=== PATIENT | male | born 1960 | race Caucasian/White ===

== ENCOUNTER 2024-01-31 11:11 | Inpatient (IN) ==
--- NOTE | 2024-01-31 11:37 | Emergency Department Note ---
Impression & Plan Precordial chest pain, Unstable angina, Elevated troponin, Exertional chest pain ED Provider Note NAME: PHANI GONZALEZ AGE: 63 SEX: M : 1960 ARRIVES VIA: Walk-In INFORMANT: [Patient] ED PROVIDER(S): [Cornelius Sharma MD] CHIEF COMPLAINT: Cardiac assessment HISTORY OF PRESENT ILLNESS: The patient is a 63-year-old male who states that he has had about 3 weeks of exertional chest pain that resolves with rest. Sometimes, if he pushes himself too hard, he becomes nauseated-he actually vomited 1 time. With rest, the pain subsides. He has had pain sometimes for 10-15 minutes before things resolve. The patient currently has no discomfort as he is resting. There has been no sweating, no pain radiation, no shortness of breath. The patient has no diagnosed coronary artery disease although, he had a calcium score done this year that was high. The patient did have a nuclear stress test earlier in the year and states that he passed. The patient typically lives in [place], he is here for a few months, he is dealing with his mother's estate. PMHx/PSHx/Social Hx: See Below PHYSICAL EXAM: GENERAL: Patient is in no acute distress. HEENT: No acute trauma, normocephalic atraumatic, mucous membranes moist, no nasal congestion. NECK: No stridor, no adenopathy, no meningismus, trachea is midline. LUNGS: Clear to auscultation bilaterally, no wheeze, no rhonchi, breath sounds equal. HEART: Without murmurs gallops or rubs, regular rate and rhythm. ABDOMEN: Soft, nontender, no peritonitis. EXTREMITIES: No cyanosis, full range of motion of all the joints without pain or difficulty. NEUROLOGIC: Oriented x 3, no acute motor or sensory deficits, no focal weakness. SKIN: No jaundice, no diaphoresis. DIFFERENTIAL DIAGNOSIS: Angina, VT, coronary artery disease, anemia, among others. EMERGENCY DEPARTMENT PROCEDURES: MEDICAL DECISION MAKING: There is no leukocytosis or concerning anemia. There is a normal platelet count. No coagulopathy. No renal failure or significant electrolyte abnormality. No concerning liver enzyme elevation. No evidence for pancreatitis. ECG shows a sinus rhythm with some biphasic T waves in the anterior and lateral leads. These findings were concerning for ischemia. These findings were new compared to an ECG that he had brought with him to this hospital. Cardiac enzyme testing x 1 is somewhat elevated, this troponin elevation certainly could be consistent with cardiac injury. Chest film does not show pneumonia or CHF. On exam, the patient was without complaints of chest pain. He was resting comfortably. Patient received oral aspirin. He was given a bolus of IV heparin and placed on a heparin drip. I did speak with the patient about his findings, I did speak with case management. The patient appears to have suffered cardiac injury. Patient is in need of a hospital stay and further cardiac workup. I did speak with cardiology, the patient is likely going to require a cardiac catheterization. The on-call hospitalist was consulted. The patient is aware of the need for hospitalization and potential cardiac catheterization. Prior/Outside records/notes reviewed: Notes from his care center in [place] showing an essentially unremarkable ECG, he did have a heart score that was elevated. ECG per my interpretation: Indication was chest pain. The ECG shows a normal sinus rhythm with a rate of 63. There are biphasic T waves seen in the anterior leads concerning for possible ischemia. There is no ST elevation, no PVCs. The QTc is 399. Compared to the ECGs that he brings with him, the biphasic T waves are new. Continuous Cardiac Monitoring per my interpretation: An order was placed for continuous cardiac monitoring. The monitor shows a rate of 78 with normal sinus rhythm. Imaging/x-ray results per my interpretation: Chest x-ray does not show mediastinal widening, pneumonia or pneumothorax. Chronic Medical/Social conditions affecting care: [facility] Yun. Case management and the on-call hospitalist. Level of care consideration(s): After review of the information above and other included data: --I believe the patient requires escalation of care to admission Critical Care Note: I have personally spent 45 minutes of critical care time in the direct management of this patient. This includes bedside care, interpretation of diagnostic studies, and testing, discussion with consultants, patient, and family members, and other required patient management activities. This 45 minutes is in excess of all separately billable procedures. DISPOSITION: Admission Past Med/Surg History Problem List (Updated 01/31/24 @ 15:23 by Cornelius Sharma MD) Exertional chest pain (Acute) Elevated troponin (Acute) Unstable angina (Acute) Precordial chest pain (Acute) NSTEMI (non-ST elevated myocardial infarction) Crescendo angina HLD (hyperlipidemia) Chest pain Syncope Medical History Acute non-ST segment elevation myocardial infarction Surgical History (Updated 01/31/24 @ 13:34 by Jayshree Bourgeois PA-C) Hx of total hip arthroplasty Social History Smoking Status: Never smoker Feels Safe at Home: Yes Allergies Allergies Allergy/AdvReac Type Severity Reaction Status Date / Time No Known Allergies Allergy Verified 01/31/24 14:12 Home Meds Home Medications Medication Instructions Recorded Confirmed Vitamin D2 1 cap PO QAM 01/31/24 01/31/24 atorvastatin 10 mg tablet 10 mg PO DAILY 01/31/24 01/31/24 multivitamin 1 tab PO QAM 01/31/24 01/31/24 Results & Data (ED) Vital Signs Vital Signs - 24 hr 01/31/24 11:17 01/31/24 11:44 01/31/24 11:48 Temperature 36.8 C Temperature Source Temporal Artery Scan Pulse Rate 78 61 Pulse Rate [Apical] Pulse Rhythm [Apical] Pulse Strength [Apical] Respiratory Rate 18 Respiratory Effort / Characteristics Non-Labored Spontaneous Respiratory Depth Normal Respiratory Pattern Blood Pressure 173/87 H Blood Pressure [Left Arm] Blood Pressure Mean 115 Blood Pressure Mean [Left Arm] Blood Pressure Position Sitting Blood Pressure Position [Left Arm] Pulse Oximetry 97 Oxygen Delivery Method Room Air Room Air Sepsis Recent Fever Within 48 Hours No Sepsis New/Unexplained Change in Mental Status N/A Sepsis Action Taken by Nursing No Action Required 01/31/24 11:48 01/31/24 11:48 01/31/24 13:00 Temperature Temperature Source Pulse Rate Pulse Rate [Apical] 62 Pulse Rhythm [Apical] Pulse Strength [Apical] Respiratory Rate 18 18 Respiratory Effort / Characteristics Respiratory Depth Respiratory Pattern Blood Pressure Blood Pressure [Left Arm] 140/81 153/96 H Blood Pressure Mean Blood Pressure Mean [Left Arm] 100 115 Blood Pressure Position Blood Pressure Position [Left Arm] Pulse Oximetry 97 99 Oxygen Delivery Method Room Air Room Air Room Air Sepsis Recent Fever Within 48 Hours Sepsis New/Unexplained Change in Mental Status Sepsis Action Taken by Nursing 01/31/24 14:09 Temperature Temperature Source Pulse Rate Pulse Rate [Apical] 60 Pulse Rhythm [Apical] Regular Pulse Strength [Apical] Normal Respiratory Rate 16 Respiratory Effort / Characteristics Non-Labored Respiratory Depth Normal Respiratory Pattern Regular Blood Pressure Blood Pressure [Left Arm] 152/80 H Blood Pressure Mean Blood Pressure Mean [Left Arm] 104 Blood Pressure Position Blood Pressure Position [Left Arm] Sitting Pulse Oximetry 98 Oxygen Delivery Method Room Air Sepsis Recent Fever Within 48 Hours Sepsis New/Unexplained Change in Mental Status Sepsis Action Taken by Shelter Medications Current Medication List: was personally reviewed by me Laboratory Data Attestation: I reviewed the patient's lab results. 01/31/24 11:30 01/31/24 11:30 Lab Results 01/31/24 01/31/24 01/31/24 Range/Units 11:30 12:31 13:30 WBC 4.11 L (4.8-10.8) K/ul RBC 4.51 L (4.70-6.10) M/uL Hgb 14.2 (14.0-18.0) g/dl Hct 41.5 L (42.0-52.0) % MCV 92.0 (80.0-100.0) fL MCH 31.5 (25.0-34.0) pg MCHC 34.2 (32.0-36.0) g/dL RDW Std Deviation 42.3 (36.4-46.3) fL RDW Coeff of Shana 12.6 (11.5-14.5) % Plt Count 267 (130-400) K/uL MPV 9.3 L (9.4-12.4) fL Immature Gran % (Auto) 0.2 % Neut % (Auto) 57.3 % Lymph % (Auto) 29.9 % [place] % (Auto) 10.9 % Eos % (Auto) 1.5 % Baso % (Auto) 0.2 % Neut # (Auto) 2.35 (1.40-6.50) K/uL Lymph # (Auto) 1.23 (1.20-3.40) K/uL [place] # (Auto) 0.45 (0.11-0.59) K/uL Eos # (Auto) 0.06 (0.00-0.50) K/uL Baso # (Auto) 0.01 (0.00-0.20) K/uL Immature Gran # (Auto) 0.01 (0.01-0.20) K/uL PT Cancelled 10.1 INR Cancelled 0.9 APTT Cancelled 26 PTT Ratio Cancelled 1.0 Sodium 137 (136-145) mmol/L Potassium 4.5 (3.5-5.1) mmol/L Chloride 105 (98-107) mmol/L Carbon Dioxide 23 (21-32) mmol/L Anion Gap 9 (3-11) BUN 13 (6-23) mg/dl Creatinine 0.97 (0.6-1.4) mg/dl Est Cr Clr Drug Dosing 78.2 ml/min Est GFR ( Amer) 94.6 ml/min Est GFR (Non-Af Amer) 81.6 ml/min BUN/Creatinine Ratio 13.4 (10-20) Glucose 111 H (70-99(Fasting)) mg/dl Calcium 9.6 (8.6-10.3) mg/dl Magnesium 2.0 (1.7-2.4) mg/dl Total Bilirubin 0.4 (0.2-1.0) mg/dl AST 63 H (13-39) U/L ALT 26 (7-52) U/L Alkaline Phosphatase 86 (34-104) U/L Troponin I High Sens 129.1 H* 149.6 H* (0-20) pg/ml Total Protein 7.7 (6.0-8.3) gm/dl Albumin 4.7 (3.4-5.0) gm/dl Globulin 3.0 (2.5-4.0) gm/dl Albumin/Globulin Ratio 1.6 (0.9-2) Lipase 14 (11-82) U/L Administered Medications Heparin Sodium/Dextrose (Heparin Sodium/Dextrose) 25,000 units in 500 mls @ 26 mls/hr IV .[id number] [facility]; Protocol Stop: 03/01/24 12:44 Last Admin: 01/31/24 13:06 Dose: 1,300 units/hr, 26 mls/hr Documented By: DARA Co-signed By: [facility] Discontinued Medications Aspirin (Aspirin Chew 324 Mg) 324 mg PO NOW STA Stop: 01/31/24 11:36 Last Admin: 01/31/24 11:46 Dose: 324 mg Documented By: DARA Heparin Sodium (Porcine) (Heparin Sod (Porcine) 1000 Unit/Ml) 1 units IV NOW ONE Stop: 01/31/24 12:46 Last Admin: 01/31/24 13:07 Dose: 6,000 units Documented By: DARA Co-signed By: MICHAEL Heparin Sodium/Sodium Chloride (Heparin In Nss Infusion 1000 Unit/500 Ml (2 U/Ml) Bag) Confirm Administered Dose 3,000 units IV .STK-MED ONE Stop: 01/31/24 14:18 Last Admin: 01/31/24 14:44 Dose: 3,000 units Documented By: GERARD Nicardipine HCl (Nicardipine Hcl Inj 2.5 Mg/Ml 10 Ml Amp) Confirm Administered Dose 25 mg .ROUTE .STK-MED ONE Stop: 01/31/24 14:18 Last Admin: 01/31/24 14:44 Dose: 25 mg Documented By: GERARD Nitroglycerin/Dextrose (Nitroglycerin/D5w 100mcg/Ml 20ml Syr) Confirm Administered Dose 2,000 mcg .ROUTE .STK-MED ONE Stop: 01/31/24 14:18 Last Admin: 01/31/24 14:44 Dose: 2,000 mcg Documented By: GERARD Imaging Data Radiologist's Impression: Chest X-Ray 01/31/24 11:20 XR chest 1V portable HISTORY: Chest pain, nonspecific COMPARISON: Chest CT 02/04/2019. FINDINGS: The lungs are clear. Cardiac silhouette is normal in size. No pleural effusions. No pneumothorax. IMPRESSION: No acute process. ACT 112: Negative or not required by law. Electronically signed by: Scott Loomis M.D. 01/31/2024 12:55 PM Discharge Plan Visit Data Chief Complaint: Cardiac Assessment Stated Complaint: CHEST PAIN AND PRESSURE, SOME NAUSEA ED Provider: Cornelius Sharma Discharge Problem: Precordial chest pain, Unstable angina, Elevated troponin, Exertional chest pain Patient Disposition: Admitted As Inpatient Condition: Serious Forms Stand Alone Forms: [facility] Prescriptions Prescriptions: No Action multivitamin Tablet 1 tab PO QAM Rx Instructions: OTC Vitamin D2 1 cap PO QAM Rx Instructions: otc, unknown strength atorvastatin 10 mg Tablet 10 mg PO DAILY Referrals Referrals: PCP,NO [Primary Care Provider] -
[2024-01-31] MEDS: ASPIRIN CHEW 324 MG PO STA (11:46)
[2024-01-31 11:49] LABS: Basophils # (auto) 0.01 K/uL (0.00-0.20); Basophils % (auto) 0.2 %; Eosinophils # (auto) 0.06 K/uL (0.00-0.50); Eosinophils % (auto) 1.5 %; Hematocrit (blood only) 41.5 % (42.0-52.0); Hemoglobin 14.2 g/dl (14.0-18.0); Immature Granulocytes # (auto) 0.01 K/uL (0.01-0.20); Immature Granulocytes % (auto) 0.2 %; Lymphocytes # (auto) 1.23 K/uL (1.20-3.40); Lymphocytes % (auto) 29.9 %; Mean Corpuscular Hemoglobin 31.5 pg (25.0-34.0); Mean Corpuscular Hgb Conc 34.2 g/dL (32.0-36.0); Mean Platelet Volume 9.3 fL (9.4-12.4); Monocytes # (auto) 0.45 K/uL (0.11-0.59); Monocytes % (auto) 10.9 %; Neutrophils # (auto) 2.35 K/uL (1.40-6.50); Neutrophils % (auto) 57.3 %; Platelet Count 267 K/uL (130-400); RDW Coefficient of Variation 12.6 % (11.5-14.5); RDW Standard Deviation 42.3 fL (36.4-46.3); Red Blood Count 4.51 M/uL (4.70-6.10); White Blood Count 4.11 K/ul (4.8-10.8)
[2024-01-31 12:14] LABS: Albumin Globulin Ratio 1.6 (0.9-2); Albumin Level 4.7 gm/dl (3.4-5.0); BUN Creatinine Ratio 13.4 (10-20); Bilirubin,Total 0.4 mg/dl (0.2-1.0); Calcium 9.6 mg/dl (8.6-10.3); Creatinine Clr Calc Pharmacy 78.2 ml/min; Est GFR (African American) 94.6 ml/min; Est GFR (Non-African American) 81.6 ml/min; Potassium 4.5 mmol/L (3.5-5.1); Total Protein 7.7 gm/dl (6.0-8.3)
[2024-01-31 12:26] LABS: Troponin I High Sensitivity 129.1 pg/ml (0-20)
[2024-01-31] MEDS ORDERED: Heparin IV Adult Wt-Based Standard w/ INITIAL Bolus Protocol IV STA (12:30)
--- NOTE | 2024-01-31 12:51 | History & Physical Report ---
Date of Service January 31, 2024 Assessment & Plan (1) Chest pain: (2) Crescendo angina: (3) NSTEMI (non-ST elevated myocardial infarction): (4) HLD (hyperlipidemia): Plan Chest pain, rule out ACS Hyperlipidemia -Admit to PCU/ICU depending on postcardiac cath findings -Cardiology consulted -EKG reviewed showing biphasic T wave changes in anterior lateral leads, patient is currently chest pain-free -Heparin drip initiated, continue -N.p.o. -BP is stable in the 150s over 80s, patient reports whitecoat syndrome with hypertension happening in the office He also notes that he was previously prescribed antihypertensive medication but I have never took it -Atorvastatin 10 mg at home, will increase for plaque stabilization to 80 mg daily -Initial troponin 130, repeat troponin pending, trend to peak -Daily EKG -PT/OT consults, patient may require cardiac rehab DVT ppx: teds, scds Lines: 2 PIV, heparin infusing FEN/GI: N.p.o. CODE: Full code Dispo: From home, likely to remain in the hospital x 1-2 days A total of 75 minutes were spent with greater than 50% of that time face to face with the patient, personally reviewing all current laboratories, imaging studies, past medication reconciliation, outpatient chart review, and discussion with specialists to collaborate care for the patient with attending. Please see attending documentation for corrections and/or additions. History of Present Illness Chief Complaint: Chest pain on exertion Primary Care Provider: NO PCP This is a 63 yo M with PMHx of Recent right total hip surgery in September 2023, past cardiac clearance at that time, HLD on atorvastatin, who presents to the hospital with intermittent chest pain on exertion in the past 3 weeks. Activities that prompt such pain include mowing the grass, climbing a flight of stairs. He notes that once he pushed himself too hard and became nauseous and vomited with the associated chest pain. He typically lives in [facility] for majority of the year but was born and raised in this area, and has family in this area,and is here working on his mother's estate. He had another episode of mild chest pain on exertion today , so who is present at bedside urged him to come to the ER. Currently is chest pain free. Pt reports having had cardiac testing at home earlier this spring to undergo hip surgery, in which his calcium scoring test was elevated at 390, and that he had nuclear stress test which was normal at that time. Troponin is 129 and EKG shows biphasic T wave inversions in the anterior lateral leads. Heparin gtt has been started. Cardiology is aware of the patient. Will keep him NPO for cardiac cath this afternoon. Social history: No smoking, no illicit drug use, drinks 1-2 alcoholic beverages per week. Patient does not participate in routine exercise. 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 , present at bedside. Family history: Both sister and mother are from cardiac disease, sister at age 56, 4 years ago, mother at age 87 in June 2023 Allergies Allergy/AdvReac Type Severity Reaction Status Date / Time No Known Allergies Allergy Unverified 02/13/18 15:45 Home Medications Medication Instructions Recorded Confirmed Type Vitamin D2 1 cap PO QAM 01/31/24 01/31/24 History atorvastatin 1 tab PO QAM 01/31/24 01/31/24 History multivitamin 1 tab PO QAM 01/31/24 01/31/24 History Past Med/Surg History Problem List (Updated 01/31/24 @ 13:58 by Baldev Muñoz MD) NSTEMI (non-ST elevated myocardial infarction) Crescendo angina HLD (hyperlipidemia) Chest pain Syncope Medical History (Updated 01/31/24 @ 13:58 by Baldev Muñoz MD) Acute non-ST segment elevation myocardial infarction Surgical History (Updated 01/31/24 @ 13:34 by Jayshree Bourgeois PA-C) Hx of total hip arthroplasty Social History Smoking Status: Never smoker Feels Safe at Home: Yes Review of Systems Review of Systems: Constitutional: No fever, sweats or chills Eyes: No diplopia, no worsening or blurred vision ENT: normal hearing, no trouble swallowing Respiratory: No cough, sputum, dyspnea at rest or on exertion Cardiovascular: As per HPI, No chest pain, tightness or palpitations currently Abdomen: No pain, nausea, vomiting, diarrhea or constipation Musculoskeletal: No joint pain, calf pain, swelling Neurologic: No weakness, numbness/tingling, or balance problems Psychiatric: No anxiety or depression Skin: No rash or itch Physical Exam Physical Exam: General: awake, alert, no apparent distress, white male Head: Normocephalic, atraumatic ENT: PERRL, EOMI, no pharyngeal exudate, mucous membranes moist Chest: Clear to auscultation, on room air, no adventitious breath sounds Cardiac: Regular rate and rhythm, no murmur, no JVD, normal peripheral pulses, good capillary refill Abdominal: NABS x 4 quadrants, soft, nondistended, nontender to palpation, no rebound or guarding Extremities: Normal inspection, no peripheral edema or erythema, calfs nontender to palpation Psych: Normal mood and affect Neuro: AAO x 3, strength intact bilaterally and rated 5/5, no motor deficits, speech is clear, no peripheral sensory deficits Results & Data Results & Data Vital Signs (Past 12 Hours) Vital Signs Temp Pulse Resp BP BP Pulse Ox O2 Del Method 01/31/24 11:48 Room Air 01/31/24 11:48 18 140/81 97 Room Air 01/31/24 11:48 Room Air 01/31/24 11:44 61 01/31/24 11:17 36.8 C 78 18 173/87 H 97 Room Air Laboratory Results 01/31/24 01/31/24 12:31 11:30 WBC 4.11 L RBC 4.51 L Hgb 14.2 Hct 41.5 L MCV 92.0 MCH 31.5 MCHC 34.2 RDW Std Deviation 42.3 RDW Coeff of Shana 12.6 Plt Count 267 MPV 9.3 L Immature Gran % (Auto) 0.2 Neut % (Auto) 57.3 Lymph % (Auto) 29.9 [place] % (Auto) 10.9 Eos % (Auto) 1.5 Baso % (Auto) 0.2 Neut # (Auto) 2.35 Lymph # (Auto) 1.23 [place] # (Auto) 0.45 Eos # (Auto) 0.06 Baso # (Auto) 0.01 Immature Gran # (Auto) 0.01 PT 10.1 Cancelled INR 0.9 Cancelled APTT 26 Cancelled PTT Ratio 1.0 Cancelled Sodium 137 Potassium 4.5 Chloride 105 Carbon Dioxide 23 Anion Gap 9 BUN 13 Creatinine 0.97 Est Cr Clr Drug Dosing 78.2 Est GFR ( Amer) 94.6 Est GFR (Non-Af Amer) 81.6 BUN/Creatinine Ratio 13.4 Glucose 111 H Calcium 9.6 Magnesium 2.0 Total Bilirubin 0.4 AST 63 H ALT 26 Alkaline Phosphatase 86 Troponin I High Sens 129.1 H* Total Protein 7.7 Albumin 4.7 Globulin 3.0 Albumin/Globulin Ratio 1.6 Lipase 14 Diagnostic Findings Chest X-Ray 01/31/24 11:20 XR chest 1V portable HISTORY: Chest pain, nonspecific COMPARISON: Chest CT 02/04/2019. FINDINGS: The lungs are clear. Cardiac silhouette is normal in size. No pleural effusions. No pneumothorax. IMPRESSION: No acute process. ACT 112: Negative or not required by law. Electronically signed by: Scott Loomis M.D. 01/31/2024 12:55 PM ECG Additional Comments: Reviewed showing biphasic ST wave and changes in anterior lateral leads Code Status & VTE Plan Code Status Full code Supervising Physician Co-Signing Physician Notes Patient was seen and examined independently at bedside. Chart reviewed. Case discussed with Jayshree MARTINEZ and agree with the documentation above. In summary, this is a 63 year old male who presented with unstable angina/NSTEMI with exertional CP, elevated trop and EKG changes. Given aspirin and heparin drip in ED and plan for cardiac cath later today per cardiology. Echo being done. Currently chest pain free. Family at bedside. Further management per cardiology. Rest as per the note above.
--- NOTE | 2024-01-31 12:57 | XRay Report ---
XR chest 1V portable HISTORY: Chest pain, nonspecific COMPARISON: Chest CT 02/04/2019. FINDINGS: The lungs are clear. Cardiac silhouette is normal in size. No pleural effusions. No pneumot horax. IMPRESSION: No acute process. ACT 112: Negative or not required by law. Electronically signed by: Scott Loomis M.D. 01/31/2024 12:55 PM
[2024-01-31 13:00] LABS: INR 0.9 (0.9-1.1); Partial Thromboplastin Time 26 Seconds (21-31); Prothrombin Time 10.1 Seconds (9.0-12.0)
[2024-01-31] MEDS: HEPARIN SODIUM/DEXTROSE 25,000 UNITS/500 ML BAG IV SCH (13:06)
[2024-01-31] MEDS: HEPARIN SOD (PORCINE) 1000 UNIT/ML IV ONE (13:07)
--- NOTE | 2024-01-31 13:13 | Cardiology Consultation ---
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 EKG with new T wave abnormalities anterior leads, elevated troponin present. Currently asymptomatic. Patient has received aspirin and will be begun on IV heparin with anticipated diagnostic coronary angiography later today History of Present Illness Reason for Consultation: Crescendo angina, non-ST segment elevation myocardial infarction Requesting Physician: [facility]ist, Dr. 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 1 episode of exertional emesis after heavy exertion. Symptoms of had progressive increase in severity and ease of onset. Patient strongly concerned given familial history of premature coronary disease multiple family members, elevated calcium score done in the last years time. No prior history of TIA or stroke. No history of complications with anesthesia. No difficulties with dye administration no history of renal or hepatic disease. Usually very physically active. No bleeding issues dark black stools blood in the stools. Appetite and weight stable. No headaches or visual changes. Past evaluation included negative stress nuclear imaging prior to hip surgery in June 2023 EKG at that time normal Underlying medications only atorvastatin 10 mg/day for cardiovascular risk factors, hyperlipidemia EKG in ER with biphasic T waves in anterior leads. Troponin elevated at 129. Patient has received aspirin 324 mg IV heparin being initiated Allergies Allergy/AdvReac Type Severity Reaction Status Date / Time No Known Allergies Allergy Unverified 02/13/18 15:45 Home Medications Medication Instructions Recorded Confirmed Type Vitamin D2 1 cap PO QAM 01/31/24 01/31/24 History atorvastatin 1 tab PO QAM 01/31/24 01/31/24 History multivitamin 1 tab PO QAM 01/31/24 01/31/24 History Patient History Medical History (Updated 01/31/24 @ 13:43 by Bjorn Yun MD) Acute non-ST segment elevation myocardial infarction Surgical History (Updated 01/31/24 @ 13:34 by Jayshree Bourgeois PA-C) Hx of total hip arthroplasty Social History Smoking Status: Never smoker Feels Safe at Home: Yes Review of Systems Review of Systems: All systems reviewed & are unremarkable except as noted in HPI & below Physical Exam Constitutional: WD/WN, vitals as above no acute distress Eyes: PERRL, conjunctivae normal, anicteric sclerae ENMT: external ear and nose normal, oropharynx normal Neck: trachea midline, no thyromegaly Respiratory: normal respiratory effort, lungs clear to auscultation Cardiovascular: RRR, no murmur, no edema Vessels: normal carotid upstroke, femoral pulses present and radial pulses present; no abdominal aortic bruit Gastrointestinal (Abdomen): normal bowel sounds, soft, nontender, no hepatosplenomegaly Musculoskeletal: no cyanosis or clubbing, extremities motor strength 5/5 Results & Data Vital Signs (Past 12 Hours) Vital Signs Temp Pulse Resp BP BP Pulse Ox O2 Del Method 01/31/24 11:48 Room Air 01/31/24 11:48 18 140/81 97 Room Air 01/31/24 11:48 Room Air 01/31/24 11:44 61 01/31/24 11:17 36.8 C 78 18 173/87 H 97 Room Air Laboratory Results Laboratory Results - last 24 hr 01/31/24 01/31/24 11:30 12:31 WBC 4.11 L RBC 4.51 L Hgb 14.2 Hct 41.5 L MCV 92.0 MCH 31.5 MCHC 34.2 RDW Std Deviation 42.3 RDW Coeff of Shana 12.6 Plt Count 267 MPV 9.3 L Immature Gran % (Auto) 0.2 Neut % (Auto) 57.3 Lymph % (Auto) 29.9 [place] % (Auto) 10.9 Eos % (Auto) 1.5 Baso % (Auto) 0.2 Neut # (Auto) 2.35 Lymph # (Auto) 1.23 [place] # (Auto) 0.45 Eos # (Auto) 0.06 Baso # (Auto) 0.01 Immature Gran # (Auto) 0.01 PT Cancelled 10.1 INR Cancelled 0.9 APTT Cancelled 26 PTT Ratio Cancelled 1.0 Sodium 137 Potassium 4.5 Chloride 105 Carbon Dioxide 23 Anion Gap 9 BUN 13 Creatinine 0.97 Est Cr Clr Drug Dosing 78.2 Est GFR ( Amer) 94.6 Est GFR (Non-Af Amer) 81.6 BUN/Creatinine Ratio 13.4 Glucose 111 H Calcium 9.6 Magnesium 2.0 Total Bilirubin 0.4 AST 63 H ALT 26 Alkaline Phosphatase 86 Troponin I High Sens 129.1 H* Total Protein 7.7 Albumin 4.7 Globulin 3.0 Albumin/Globulin Ratio 1.6 Lipase 14
--- NOTE | 2024-01-31 14:16 | Pre Anesthesia Assessment ---
Date of Service January 31, 2024 Pre Sedation Assessment Vital Signs Temp Pulse Pulse Resp BP BP Pulse Ox 01/31/24 14:09 60 16 152/80 H 98 01/31/24 13:00 62 18 153/96 H 99 01/31/24 11:48 01/31/24 11:48 18 140/81 97 01/31/24 11:48 01/31/24 11:44 61 01/31/24 11:17 98.2 F 78 18 173/87 H 97 O2 Del Method 01/31/24 14:09 Room Air 01/31/24 13:00 Room Air 01/31/24 11:48 Room Air 01/31/24 11:48 Room Air 01/31/24 11:48 Room Air 01/31/24 11:44 01/31/24 11:17 Room Air Cardiovascular + regular rate Respiratory + respiratory effort normal Pre-Sedation Airway Assessment Smoking Status: Never smoker Hx Sleep Apnea: No Hx Difficult Intubation: No Short, Thick Neck: No Oral Cavity: + Dental Abnormalities Mallampati Class: III ASA: ASA3 Procedure Planning Contraindications for Sedation: none Current Medications Reviewed: Yes Notes The planned sedation has been discussed with the patient. Informed Consent was obtained. I have identified the patient, determined the appropriateness of sedation and have assessed the patient immediately prior to the procedure. All medicine(s) and interventions are by my order.
[2024-01-31] MEDS: NITROGLYCERIN/D5W 100MCG/ML 20ML SYR ONE (14:44)
[2024-01-31] MEDS: niCARdipine HCL INJ 2.5 MG/ML 10 ML AMP ONE (14:44)
[2024-01-31] MEDS: MIDAZOLAM HCL 1 MG/ML 2ML VIAL ONE (15:59)
[2024-01-31] MEDS: fentaNYL citrate PF 100 MCG/2 ML VIAL ONE (15:59)
[2024-01-31] MEDS: OPTIRAY 350 ONE (15:59)
[2024-01-31] MEDS: TICAGRELOR 90 MG TAB ONE (16:00)
[2024-01-31] MEDS: HEPARIN (PORCINE) 1000 UNIT/ML 10 ML (CATH LAB USE ONLY) ONE (16:00)
--- NOTE | 2024-01-31 16:16 | Post Anesthesia Assessment ---
Date of Service January 31, 2024 Post Sedation Assessment Vital Signs Temp Pulse Pulse Resp BP BP Pulse Ox 01/31/24 16:07 55 L 18 114/59 L 95 01/31/24 14:09 60 16 152/80 H 98 01/31/24 13:00 62 18 153/96 H 99 01/31/24 11:48 01/31/24 11:48 18 140/81 97 01/31/24 11:48 01/31/24 11:44 61 01/31/24 11:17 98.2 F 78 18 173/87 H 97 O2 Del Method 01/31/24 16:07 Room Air 01/31/24 14:09 Room Air 01/31/24 13:00 Room Air 01/31/24 11:48 Room Air 01/31/24 11:48 Room Air 01/31/24 11:48 Room Air 01/31/24 11:44 01/31/24 11:17 Room Air Recovery Score Activity: Moves 4 extremities Respiration: Deep Breath/Cough Circulation: +/-20% PreAnes Value Consciousness: Fully Awake Oxygen Saturation: O2 needed for >90% Post Anesthesia Score: 2 Discharge Sedation Level of Care: Fast Track Phase II Post Sedation Plan On clinical assessment, the patient appears to have tolerated the sedation without complications. Patient is recovering as anticipated. Patient will continue to be monitored by nursing and may be discharged when sedation discharge criteria are met per below protocol. Upon Completions of procedure up to 15 minutes continue every 5 minute vital signs and the P.A.R. score; then discharge to a Phase I or Fast Track to Phase II per the following guidelines: * Discharge Patient to appropriate Phase II area if PAR is 8 or greater or return to pre- procedure baseline. The post - procedure orders will be as directed. * If PAR score is less than 8 or not return to pre-procedure baseline then patient will follow Phase I monitoring till PAR is reached for Phase II. The Phase I may be done in procedure room or may call to secure a Phase I area. * If naloxone or flumazenil are used for reversal, hold in Phase I for continued monitoring from when last reversal dose was given for a minimum of 60 minutes or longer pending the nurse and/or physician discretion of patient condition before discharge to Phase II. Please call the Sedation Physician to re-evaluate and complete post-note for discharge to Phase II area. Do NOT discharge from procedure sedation or Phase 1 until post- sedation evaluation note is complete by procedure /sedation MD Sedation Discharge Instructions to be given to the patient at discharge to home.
--- NOTE | 2024-01-31 16:25 | Cardiac Catheterization ---
[facility] Data: [employer] Cardiac Status Clinical evaluation leading to the procedure CAD Presenation: Non STEMI Anginal Classification: CCS III Diagnostic Physicians Name: Alexy Aggarwal MD Closure Device Recommendations: PCI without planned CABG Cardiac Cath Procedure Full Procedure Date January 31, 2024 Pre-Procedure Diagnosis Pre-Procedure Diagnosis: Non STEMI AUC Score AUC Score: 8 Post-Procedure Diagnosis Post-Procedure Diagnosis: Severe CAD and Successful PCI Procedure(s) Performed Procedure(s) Performed: Coronary Angiography, Left Heart Cath, PTCA and Drug Eluting Stent Trapper Animal Alexy Aggarwal MD Router Tender(s) Fred Estimated Blood Loss Estimated Blood Loss: 20 Medication(s) Medication(s): Fentanyl, Heparin, Lidocaine 1%, Nicardipine, Nitroglycerin and Versed Medication(s): Ticagrelor Summary of Findings Indication: NSTEMI Access: 6 Fr slender right radial artery Catheters: [place], EBU 3.5 guide Findings: LM -normal caliber, mildly calcified, 20-30% distal stenosis LAD -medium caliber, proximal luminal irregularities, 98% mid segment stenosis after takeoff of D1. Distal vessel without significant disease and extends to apex. Medium D1 without disease. Very small diffusely diseased D2. LAD provides [id number] collaterals to PDA. Circumflex -moderate caliber, 20-30% ostial stenosis. High OM1 with 90% ostial stenosis. Medium OM 2 with 60% proximal stenosis. RCA -dominant, medium caliber, proximal segment luminal irregularities. 30% mid segment disease. Small PDA with 60% ostial and 60-70% proximal stenosis. Has competitive flow in middistal aspect of PDA. LVEDP -13 -- PCI -- Antithrombotic therapy: Heparin, ticagrelor Procedure: Left main cannulated with EBU 3.5 guide Pre-procedure flow MAURO 3 Senior Accounting Analyst 50 wire passed across lesion into distal vessel Prowater wire placed into D1 Mid LAD lesion predilated with 2.5 compliant balloon Dilated lesion stented with 2.5 x 30 mm Bob drug-eluting stent extending from proximal LAD across takeoff of small second diagonal. IC vasodilators administered. Residual stenosis at distal aspect of stent. Second CELESTINO (2.5 x 12 mm Bob) placed to mid LAD overlapping distal aspect of prior stent. Stent post-dilated with 3.0 noncompliant balloon IC vasodilators administered for spasm Post procedure MAURO 3 flow, stents well expanded with minimal residual stenosis and no apparent cardiac complications. Mild stenosis in jailed diagonal but MAURO-3 flow. Senior Accounting Analyst 50 wire redirected across high OM1 stenosis Prowater wire placed into distal circumflex Ostial OM1 dilated with 2.0 balloon, lesion appeared calcified and only partially expanded to angioplasty With small vessel size, ostial location and only partial expansion decision made to forego stenting IC vasodilators administered Post angioplasty moderate residual stenosis but MAURO-3 flow and no apparent dissection. Arterial Closure: TR band Summary: 1. Multi-vessel coronary artery disease -98% mid LAD 90% small high OM1, 60-70% OM 2 60-70% small ostial/proximal RPDA. Competitive flow in distal PDA from [id number] collaterals from LAD 2. Normal intracardiac filling pressure 3. Successful PCI of proximal to mid LAD with 2 overlapping drug-eluting stents. 4. 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 Hemodynamics Rest Ao:: 117/ Final Ao: 85/52/67 LV: 119/13 Recommendations Recommendations: PCI without planned CABG Specimens Specimens: None Radiation Exposure (mGy) 3262 Contrast (mls) 100 Anesthesia Moderate 8680-3965 Procedural Complication(s) None Disposition PCU I attest to the content of the Intraoperative Record and any orders documented therein. Any exceptions are noted below. [facility] Card Cath Procedure Codes Cardiac Catheterization Procedure 1: Cardiovascular Cath Procedures: 86523 Coronaries and LHC (+/-LV) Moderate Sedation Procedure 1: Sedation/Anesthesia: 81537 Mod Sedation by the same physician;Init15 Min Child Age 5 & Up Procedure 2: Sedation/Anesthesia: 51586 Mod Sedation by the same physician; Ea [id number] Minutes Angioplasty Procedure 1: Cardiovascular Angioplasty Procedures: 81895 PTCA; ea addl branch of a major cor art RC LC LD Stenting Procedure 1: Cardiovascular Stent Procedures: 84972 Perc transcatheter placement of intracoronary stent(s), with ang PG Care Time/CCT Total # of Minutes Spent Total Time Spent with Patient: Total time spent is greater than 50% in coordination of care (as documented) at patient's floor/unit and/or counseling patient:
[2024-01-31] MEDS ORDERED: ONDANSETRON INJ 2 MG/ML 2 ML VIAL IV PRN (16:36)
[2024-01-31] MEDS ORDERED: ACETAMINOPHEN 325 MG TAB PO PRN (16:36)
[2024-01-31] MEDS: SODIUM CHLORIDE 0.9% 1,000 ML IV SCH (18:15)
[2024-02-01 04:25] LABS: Hematocrit (blood only) 42.8 % (42.0-52.0); Hemoglobin 14.2 g/dl (14.0-18.0); Mean Corpuscular Hemoglobin 31.8 pg (25.0-34.0); Mean Corpuscular Hgb Conc 33.2 g/dL (32.0-36.0); Mean Corpuscular Volume 95.7 fL (80.0-100.0); Mean Platelet Volume 9.6 fL (9.4-12.4); Platelet Count 228 K/uL (130-400); RDW Coefficient of Variation 12.6 % (11.5-14.5); RDW Standard Deviation 43.9 fL (36.4-46.3); Red Blood Count 4.47 M/uL (4.70-6.10); White Blood Count 6.04 K/ul (4.8-10.8)
[2024-02-01 04:40] LABS: BUN Creatinine Ratio 10.9 (10-20); Calcium 9.3 mg/dl (8.6-10.3); Creatinine Clr Calc Pharmacy 63.7 ml/min; Est GFR (African American) 73.9 ml/min; Est GFR (Non-African American) 63.7 ml/min; Potassium 5.1 mmol/L (3.5-5.1)
[2024-02-01 07:11] LABS: Estimated Average Glucose 126 mg/dl
[2024-02-01] MEDS: ASPIRIN 81 MG ECTAB PO SCH (08:32)
[2024-02-01] MEDS: ATORVASTATIN 40 MG TAB PO SCH (08:32)
[2024-02-01] MEDS: TICAGRELOR 90 MG TAB PO SCH (08:32)
--- NOTE | 2024-02-01 08:56 | Hospitalist Progress Note ---
Date of Service February 01, 2024 Assessment & Plan (1) Chest pain: (2) Crescendo angina: (3) NSTEMI (non-ST elevated myocardial infarction): (4) HLD (hyperlipidemia): Plan NSTEMI Patient presented with intermittent exertional chest pain for past 3 weeks. High-sensitivity troponin of 129 on admission; Echocardiogram showed EF of 55 to 60%; mild hypokinesis of apical anterior septum and inferior wall. Grade 1 diastolic dysfunction. Mild concentric LVH. Patient underwent cardiac cath on February 01, 2024; found to have multivessel coronary artery disease with 98% mid LAD occlusion. He underwent successful PCI of proximal to mid LAD with 2 overlapping drug-eluting stent. Started on aspirin and Brilinta Also Lipitor dose increased to 80 mg once a day Continue to monitor on telemetry. Full code DVT prophylaxis heparin Time spent evaluating patient, direct bedside care, chart review, placing orders, interpretation of diagnostic studies, discussion with consultants, patient, and family members, as well as other required patient management activities is 50 minutes Please note the above document was generated using voice recognition software. It may contain grammatical, syntax or spelling errors. Any formal questions or concerns about the content, text or information contained within the body of this dictation should be directly addressed to the provider for clarification Admission and Anticipated Discharge Date Admission Date: January 31, 2024 Subjective Patient seen and examined at bedside. Comfortable; not in distress. Denies fever, chills, chest pain, shortness of breath, abdominal pain or urinary symptoms. No significant overnight events Review of Systems Review of Systems: All systems reviewed & are unremarkable except as noted in Subjective Physical Exam Physical Exam: Constitutional: WD/WN, vitals as above, NAD, sitting up in bed, pleasant, conversing easily Respiratory: normal respiratory effort, lungs clear to auscultation, no wheeze, rales, rhonchi. Normal insp/exp effort, no accessory muscle use Cardiovascular: RRR, no murmur, no edema Vessels: no JVD or carotid bruit Chest: normal inspection of chest Abdomen: normal bowel sounds, soft, nontender, no hepatosplenomegaly Musculoskeletal: no cyanosis or clubbing, extremities motor strength 5/5 Skin: no rashes, warm and dry normal turgor Neurologic: PERRL, EOMI, accommodation nl, no face palsy, no dysarthria CN's II- XI intact bilaterally and moves all extremities Psychiatric: A+Ox3, euthymic affect Results & Data Results & Data Vital Signs (Past 12 Hours) Vital Signs Temp Pulse Pulse Resp BP BP Pulse Ox 02/01/24 08:23 36.7 C 67 16 120/67 95 01/31/24 22:00 151/70 H 01/31/24 22:00 151/70 H 01/31/24 21:36 66 4 L 01/31/24 21:12 65 22 01/31/24 21:00 127/78 01/31/24 21:00 127/78 01/31/24 20:57 62 23 O2 Del Method 02/01/24 08:23 Room Air 01/31/24 22:00 01/31/24 22:00 01/31/24 21:36 01/31/24 21:12 01/31/24 21:00 01/31/24 21:00 01/31/24 20:57
[2024-02-01 11:55] VITALS: BP 126/77; PULSE 72; RESP 20; TEMP 98.4; O2SAT 96
--- NOTE | 2024-02-01 13:41 | Cardiology Progress Note ---
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 EKG with new T wave abnormalities anterior leads, elevated troponin present. Currently asymptomatic. Patient has received aspirin and will be begun on IV heparin with anticipated diagnostic coronary angiography later today 02/01/2024 Patient doing well post coronary intervention proximal/mid LAD. Plan: Dual antiplatelet therapy with aspirin and Brilinta Add low-dose beta-silverio with metoprolol succinate 12.5 mg/day. Ramos blingual nitroglycerin prescription Aggressive lipid reduction, atorvastatin 80 mg/day Cardiac rehab referral Follow-up cardiology 3 to 4 weeks Admission and Anticipated Discharge Date Admission Date: January 31, 2024 Subjective Patient seen and examined, chart, medications, telemetry reviewed. Feels well this morning. Tolerated procedure yesterday well. No chest pain or discomfort Right radial access site healing well Physical Exam Constitutional: WD/WN, vitals as above no acute distress Eyes: PERRL, conjunctivae normal, anicteric sclerae ENMT: external ear and nose normal, oropharynx normal Neck: trachea midline, no thyromegaly Respiratory: normal respiratory effort, lungs clear to auscultation Cardiovascular: RRR, no murmur, no edema Vessels: normal carotid upstroke, femoral pulses present and radial pulses present; no abdominal aortic bruit Gastrointestinal (Abdomen): normal bowel sounds, soft, nontender, no hepatosplenomegaly Musculoskeletal: no cyanosis or clubbing, extremities motor strength 5/5 Results & Data Vital Signs (Past 12 Hours) Vital Signs Temp Pulse Pulse Resp BP Pulse Ox O2 Del Method 02/01/24 12:49 36.9 C 72 20 126/77 96 02/01/24 11:54 36.9 C 72 20 126/77 96 Room Air 02/01/24 08:23 36.7 C 67 16 120/67 95 Room Air 02/01/24 08:14 69 Laboratory Results Laboratory Results - last 24 hr 01/31/24 01/31/24 01/31/24 13:30 15:22 15:38 WBC RBC Hgb Hct MCV MCH MCHC RDW Std Deviation RDW Coeff of Shana Plt Count MPV Activ Coag Time Kaolin 324 H 269 H Sodium Potassium Chloride Carbon Dioxide Anion Gap BUN Creatinine Est Cr Clr Drug Dosing Est GFR ( Amer) Est GFR (Non-Af Amer) BUN/Creatinine Ratio Glucose Estimat Average Glucose Hemoglobin A1c Calcium Troponin I High Sens 149.6 H* Triglycerides Cholesterol LDL Cholesterol, Calc VLDL Cholesterol, Calc HDL Cholesterol Cholesterol/HDL Ratio 01/31/24 02/01/24 19:44 04:03 WBC 6.04 RBC 4.47 L Hgb 14.2 Hct 42.8 MCV 95.7 MCH 31.8 MCHC 33.2 RDW Std Deviation 43.9 RDW Coeff of Shana 12.6 Plt Count 228 MPV 9.6 Activ Coag Time Kaolin Sodium 138 Potassium 5.1 Chloride 106 Carbon Dioxide 28 Anion Gap 4 BUN 13 Creatinine 1.19 Est Cr Clr Drug Dosing 63.7 Est GFR ( Amer) 73.9 Est GFR (Non-Af Amer) 63.7 BUN/Creatinine Ratio 10.9 Glucose 101 H Estimat Average Glucose 126 Hemoglobin A1c 6.0 H Calcium 9.3 Troponin I High Sens 284.0 H* D Triglycerides 112 Cholesterol 174 LDL Cholesterol, Calc 109 VLDL Cholesterol, Calc 22 HDL Cholesterol 43 Cholesterol/HDL Ratio 4.0 Diagnostic Findings Summary: 1. Multi-vessel coronary artery disease -98% mid LAD 90% small high OM1, 60-70% OM 2 60-70% small ostial/proximal RPDA. Competitive flow in distal PDA from [id number] collaterals from LAD 2. Normal intracardiac filling pressure 3. Successful PCI of proximal to mid LAD with 2 overlapping drug-eluting stents. 4. 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
[2024-02-01] MEDS ORDERED: HEPARIN SOD 5,000 UNIT/0.5 ML VIAL SQ SCH (14:00)
--- NOTE | 2024-02-01 14:10 | Discharge Summary ---
Date of Service February 01, 2024 Admission HPI Per Admitting Provider This is a 63 yo M with PMHx of Recent right total hip surgery in September 2023, past cardiac clearance at that time, HLD on atorvastatin, who presents to the hospital with intermittent chest pain on exertion in the past 3 weeks. Activities that prompt such pain include mowing the grass, climbing a flight of stairs. He notes that once he pushed himself too hard and became nauseous and vomited with the associated chest pain. He typically lives in [facility] for majority of the year but was born and raised in this area, and has family in this area,and is here working on his mother's estate. He had another episode o f mild chest pain on exertion today , so who is present at bedside urged him to come to the ER. Currently is chest pain free. Pt reports having had cardiac testing at home earlier this spring to undergo hip surgery, in which his calcium scoring test was elevated at 390, and that he had nuclear stress test which was normal at that time. Troponin is 129 and EKG shows biphasic T wave inversions in the anterior lateral leads. Heparin gtt has been started. Cardiology is aware of the patient. Will keep him NPO for cardiac cath this afternoon. Social history: No smoking, no illicit drug use, drinks 1-2 alcoholic beverages per week. Patient does not participate in routine exercise. 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 , present at bedside. Family history: Both sister and mother are from cardiac disease, sister at age 56, 4 years ago, mother at age 87 in June 2023 Admission Exam Per Admitting Provider General: awake, alert, no apparent distress, white male Head: Normocephalic, atraumatic ENT: PERRL, EOMI, no pharyngeal exudate, mucous membranes moist Chest: Clear to auscultation, on room air, no adventitious breath sounds Cardiac: Regular rate and rhythm, no murmur, no JVD, normal peripheral pulses, good capillary refill Abdominal: NABS x 4 quadrants, soft, nondistended, nontender to palpation, no rebound or guarding Extremities: Normal inspection, no peripheral edema or erythema, calfs nontender to palpation Psych: Normal mood and affect Neuro: AAO x 3, strength intact bilaterally and rated 5/5, no motor deficits, speech is clear, no peripheral sensory deficits Principal Diagnosis NSTEMI s/p LAD stent Discharge Exam Constitutional: WD/WN, vitals as above, NAD, sitting up in bed, pleasant, conversing easily Respiratory: normal respiratory effort, lungs clear to auscultation, no wheeze, rales, rhonchi. Normal insp/exp effort, no accessory muscle use Cardiovascular: RRR, no murmur, no edema Vessels: no JVD or carotid bruit Chest: normal inspection of chest Abdomen: normal bowel sounds, soft, nontender, no hepatosplenomegaly Musculoskeletal: no cyanosis or clubbing, extremities motor strength 5/5 Skin: no rashes, warm and dry normal turgor Neurologic: PERRL, EOMI, accommodation nl, no face palsy, no dysarthria CN's II- XI intact bilaterally and moves all extremities Psychiatric: A+Ox3, euthymic affect Discharge Data Allergies Allergy/AdvReac Type Severity Reaction Status Date / Time No Known Allergies Allergy Verified 01/31/24 14:12 Consultations 01/31/24 12:46 ED Decision to Admit Stat 01/31/24 16:36 Consult Cardiology Routine Procedures Performed Operation Date: 01/31/24 14:00 Actual Procedures p Cineradiography w/Routine Exam - Alexy Aggarwal MD p Cath, Left with Cors and Vent - Alexy Aggarwal MD p Drug Eluting Stent SGl Vessel(Not Applicable) - Alexy Aggarwal MD p POBA SGL Vessel - Alexy Aggarwal MD Ordered Studies 01/31/24 12:44 CL Cath Imgs for PACS use only Stat Hospital Course (1) Chest pain: (2) Crescendo angina: (3) NSTEMI (non-ST elevated myocardial infarction): (4) HLD (hyperlipidemia): Plan NSTEMI Patient presented with intermittent exertional chest pain for past 3 weeks. High-sensitivity troponin of 129 on admission; Echocardiogram showed EF of 55 to 60%; mild hypokinesis of apical anterior septum and inferior wall. Grade 1 diastolic dysfunction. Mild concentric LVH. Patient underwent cardiac cath on February 01, 2024; found to have multivessel coronary artery disease with 98% mid LAD occlusion. He underwent successful PCI of proximal to mid LAD with 2 overlapping drug-eluting stent. patient was on aspirin and Brilinta Also Lipitor dose increased to 80 mg once a day He was also started on metoprolol 12.5 bid. Patient to follow up with PCP and cardiology after discharge. Please note the above document was generated using voice recognition software. It may contain grammatical, syntax or spelling errors. Any formal questions or concerns about the content, text or information contained within the body of this dictation should be directly addressed to the provider for clarification Total Time Total Time Spent Total Time Spent (In Minutes): 35 Total Time Includes: Examination of the Patient, Discharge Planning, Medication Reconciliation, Communication With Other Providers and Other Discharge Plan Discharge Items Patient Disposition: Home - Self-Care Reason For Visit: CHEST PAIN Discharge Diagnosis: NSTEMI status post LAD stent Condition on Discharge: Serious Activity: Resume your previous activity Non-emergency contact: Primary Care Provider Call non-emergency contact if: you have any medication questions and your symptoms worsen Follow-up/Referrals: Bjorn Yun MD [Physician] - (The Cardiology office will contact you for a follow up appointment.) Kwasi Melo M.D. [Outside Practitioners] - (Date & Time 02/05/2024 9:40 AM Provider Kwasi Melo MD Department [facility] ) Diet: Regular Addtl Attending Provider Instructions: You were admitted to the hospital with a heart attack. You underwent evaluation by cardiology and had a stent placed in one of your heart vessels. You are prescribed following medication: 1) Take aspirin 81 mg once a day. This needs to be continued in definitively 2) Take Brilinta twice a day. This needs to be taken at least for 6 months. Please discuss with your family living educator regarding the duration on follow-up. 3) Lipitor 80 mg once a day. You were previously taking Lipitor 10 mg once a day which she has stopped. 4)Take metoprolol 12.5 mg once a day. Please follow-up with your primary care doctor as scheduled. Please follow-up with cardiology as well. You will be called with an appointment. Pending Studies at Discharge: No Stand-Alone Forms: My myRete, Smoking Cessation Medications and DC Order Prescriptions: New atorvastatin 40 mg Tablet 80 mg PO QAM Qty: 30 0RF aspirin 81 mg Tablet,Delayed Release (Dr/Ec) 81 mg PO QAM Qty: 60 0RF Brilinta 90 mg Tablet 90 mg PO BID Qty: 120 0RF metoprolol succinate 25 mg tablet extended release 24 hr 12.5 mg PO DAILY Qty: 60 0RF nitroglycerin 0.4 mg tablet, sublingual 0.4 mg sublingual Q5M PRN (Reason: chest pain) Qty: 30 0RF Continued multivitamin Tablet 1 tab PO QAM Rx Instructions: OTC Vitamin D2 1 cap PO QAM Rx Instructions: otc, unknown strength Discontinued atorvastatin 10 mg Tablet 10 mg PO DAILY Discharge Orders: Discharge Order (Routine); Ordered 02/01/24 Ordered By: Davon Moran/Other Patient Handouts: Prediabetes, 5 Steps for Eating Healthier Admission Data Admit Date/Time: 01/31/24 12:53 Attending Provider: Davon Dailey Admit Provider: Baldev Muñoz Primary Care Provider: PCP,NO Other Providers: Baldev Muñoz; Bjorn Yun Other Interventions: Discharge Summary Assessment (RN) Last Done: 02/01/24 12:49
--- NOTE | 2024-02-01 15:20 | Electrocardiogram Report ---
Test Reason : Blood Pressure : */* mmHG Vent. Rate : 63 BPM Atrial Rate : 63 BPM P-R Int : 178 ms QRS Dur : 82 ms QT Int : 390 ms P-R-T Axes : 24 -21 17 degrees QTcB Int : 399 ms Normal sinus rhythm Abnormal ECG When compared with ECG of 14-Feb-2018 06:54, ST now depressed in Anterior leads T wave inversion now evident in Anterior leads Confirmed by Feroz Hernandez ([id number]) on 02/01/2024 3:20:12 PM Referred By: REFERRED SELF Confirmed By: Feroz Hernandez
--- NOTE | 2024-02-02 08:17 | Electrocardiogram Report ---
Test Reason : Blood Pressure : */* mmHG Vent. Rate : 49 BPM Atrial Rate : 49 BPM P-R Int : 202 ms QRS Dur : 88 ms QT Int : 462 ms P-R-T Axes : 34 -19 77 degrees QTcB Int : 417 ms Sinus bradycardia T wave abnormality, consider anterolateral ischemia Abnormal ECG When compared with ECG of 31-Jan-2024 11:24, No significant change was found Confirmed by Gennaro Hollingsworth ([id number]) on 02/02/2024 8:17:48 AM Referred By: REFERRED SELF Confirmed By: Gennaro Hollingsworth
== END 2024-02-01 13:39 | disposition home or self-care (01) | DRG 322 ==
LOC: ED 11:11 → 1E 12:53 → SUATTDRO 12:53 → 1E 14:00